=== PATIENT | male | born 1985 | race American Indian/Alaskan Native ===

== ENCOUNTER 2020-06-13 12:40 | Outpatient (CLI) | payer OTHER ==
[2020-06-13 13:29] LABS: Blood Urea Nitrogen 13 mg/dL (9-20)
--- NOTE | 2020-06-13 18:23 | Cat Scan Report ---
FACIAL BONE CT 06/13/2020 HISTORY: TEMP BONE. No other information available. FINDINGS: Unenhanced and enhanced CT images of the facial bones were obtained. Images are evaluated i n the axial, coronal, and sagittal planes. There is no evidence of acute sinusitis. Paranasal sinuses are clear. There is no evidence of acute orbital abnormality or mass. Temporal bones have a normal and symmetric appearance. There is a left frontal supraorbital scalp swelling noted, which may be due to prior injury or surger y. There is no evidence of abnormal contrast enhancement or abnormal enhancing structures. IMPRESSION: No definite abnormality. If there is a specific area of clinical concern which is not add ressed for this report, please feel free to contact us directly for additional imaging and protocol e valuation. All CT scans at this location are performed using dose reduction to ALARA by means of automated expos ure control. Signer Name: Micheal Vargas MD Signed: 06/13/2020 6:19 PM Workstation Name: [id number]
== END 2020-06-13 12:41 | disposition home or self-care (01) ==
LOC: CT 12:40
DX: S02.81XA Fracture of other specified skull and facial bones, right side, initial encounter for closed fracture (principal); X58.XXXA Exposure to other specified factors, initial encounter; Y93.89 Activity, other specified; Y92.89 Other specified places as the place of occurrence of the external cause; Y99.8 Other external cause status
CPT/HCPCS: 36415; 70488; 82565; 84520; Q9967